=== PATIENT | female | born 1965 | race Caucasian/White ===

== ENCOUNTER 2016-05-30 20:36 | Emergency (ER) | payer MEDICAID ==
[~2016-05-30] VITALS: Ht 157.5 cm; Wt 47.6 kg
[~2016-05-30 20:36] MED LIST: ADVAIR DISKUS 11 DSK IH; AMOXICILLIN500 MG PO; COMPAZINE5 M1 PO; DILAUDID2 MG PO; INDERAL20 MG PO; KLONOPIN0.5 MG PO; MS-CONTIN30 MG PO; XOPENEX1.25 MG/0. INH; ZOFRAN4 M1 PO
[2016-05-30 20:50] VITALS: BP 181/100
--- NOTE | 2016-05-31 00:23 | NUR ---
PT TAKEN TO BED 6.
[2016-05-31 00:44] VITALS: BP 147/113
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
--- NOTE | 2016-05-31 02:32 | NUR ---
Patient being evaluated by physician at bedside.
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
== END 2016-05-31 03:14 | disposition left against medical advice (07) ==
LOC: MED 20:36
DX: T76.21XA Adult sexual abuse, suspected, initial encounter (principal); Y07.9 Unspecified perpetrator of maltreatment and neglect